=== PATIENT | male | born 1970 | race Caucasian/White ===

== ENCOUNTER 2017-01-26 19:46 | Emergency (ER) | payer OTHER ==
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
[2017-01-26] MEDS ORDERED: DEXAMETHASONE SOD PHOS INJ 10 MG/1 ML VIAL IM ONE (23:30)
[2017-01-26] MEDS ORDERED: KETOROLAC TROMETHAMINE 60 MG/2 ML SDV IM ONE (23:30)
[2017-01-26 23:54] VITALS: BP 129/80
== END 2017-01-26 23:54 | disposition home or self-care (01) ==
LOC: ER 19:46
DX: M54.5 Low back pain (principal); G89.29 Other chronic pain; V49.9XXS Car occupant (driver) (passenger) injured in unspecified traffic accident, sequela
CPT/HCPCS: 99283; 96372; J1885; J1100